=== PATIENT | female | born 1965 | race Two or more races ===

== ENCOUNTER 2016-06-08 19:47 | Emergency (ER) | payer OTHER ==
[2016-06-08 20:21] LABS: PH,URINE 6.5 (5.0-8.0); SPECIFIC GRAVITY 1.015 (1.001-1.030); URINE BILIRUBIN NEGATIVE (NEGATIVE); URINE BLOOD NEGATIVE (NEGATIVE); URINE GLUCOSE (UA) NEGATIVE (NEGATIVE); URINE LEUKOCYTE ESTERASE NEGATIVE (NEGATIVE); URINE NITRITE NEGATIVE (NEGATIVE); URINE PROTEIN NEGATIVE (NEGATIVE); URINE UROBILINOGEN 1 mg/dL (0-1 mg/dl)
[2016-06-08 20:23] LABS: URINE APPEARANCE CLEAR; URINE COLOR YELLOW
--- NOTE | 2016-06-09 08:06 | CT ---
Examination: Noncontrast CT scans of the Abdomen and Pelvis Clinical indication: Lower abdominal pain for 30 days. Comparison:None Technique: Multidetector CT scanner was utilized. No oral or intravenous contrast was administered. Axial images were acquired from just above the domes of the diaphragm to the iliac crest. A CT scan of the pelvis was carried out from the iliac crest to the initial tuberosities. Sagittal, axial and coronal stacked 5 mm images were reviewed. Findings: Abdomen CT (noncontrast): The lung bases are clear and are without mass or pleural effusion. Liver exhibits diminished attenuation compatible with fatty infiltration. There is relative sparing adjacent to the gallbladder. The gallbladder is within normal limits. There is no evidence of biliary obstruction. The spleen size and attenuation are within normal limits. The pancreas is normal in size and contours. No inflammatory stranding is identified. The pancreatic duct is unremarkable. The adrenals are unremarkable. The kidneys are without mass or hydronephrosis. No nephrolithiasis is identified. The abdominal aorta exhibits mild atherosclerotic plaquing with no aneurysm. There is no adjacent inflammatory stranding. No adjacent adenopathy is identified. The stomach is unremarkable. The visualized segments of small and large bowel are within normal limits. The osseous structures exhibit no displaced fracture. No lytic or blastic lesions are identified. Pelvic CT findings (noncontrast): The distal ureters and bladder are unremarkable. The uterus is unremarkable. There are no adnexal masses. No adenopathy is identified. Atherosclerotic plaquing the iliac vessels are noted. There is no aneurysmal dilatation. The visualized segments of small and large bowel are unremarkable. The appendix is unremarkable. 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 There is considerable facet arthropathy at L5-S1. There is a fat-containing right inguinal hernia. No incarceration or inflammation is identified. IMPRESSION: 1. No evidence of acute inflammatory or obstructive process involving the abdomen or pelvis. 2. Atherosclerosis. 3. Fatty infiltration of the liver. 4. Normal appendix. 5. Fat-containing right inguinal hernia. 6. Spondylosis changes of the lumbar spine. Findings were communicated by [facility] to the emergency department at: 12:44 AM 06/09/2016
[2016-06-10 15:45] LABS: CHLAMYDIA BD Negative (Negative); N.GONORRHOEAE BD Negative (Negative); SOURCE Urine (())
== END 2016-06-09 01:03 | disposition home or self-care (01) ==
LOC: ED 19:47
DX: K59.00 Constipation, unspecified (principal); E11.9 Type 2 diabetes mellitus without complications